=== PATIENT | female | born 1990 ===

== ENCOUNTER 2018-09-05 19:19 | Emergency (ER) | payer OTHER ==
[2018-09-05 20:07] VITALS: BP 105/70
--- NOTE | 2018-09-05 20:25 | UC ---
Knee Pain HPI - HPI Summary HPI Summary: 27-year-old female comes in with a chief complaint of right knee pain after a fall just prior to arrival running. It was a twist and fall she felt a pop. Pain is mostly in the anterior and lateral aspect. She has been unable to walk secondary to pain. She reports that she can extend and flex the knee but it does give her pain. Dorsiflexion the foot also gives pain. Denies any ankle pain or injury. No skin break. No decreased sensation. - History of Current Complaint Chief Complaint: UCLowerExtremity Stated Complaint: KNEE INJURY Time Seen by Provider: 09/05/18 20:13 Hx Last Menstrual Period: ON CONTROL Pain Intensity: 8 - Allergies/Home Medications Allergies/Adverse Reactions: Allergies Allergy/AdvReac Type Severity Reaction Status Date / Time No Known Allergies Allergy Verified 09/05/18 20:07 Home Medications: Home Medications Control* 09/05/18 [History] Citalopram TAB* [CeleXA TAB*] 10 mg PO DAILY 09/05/18 [History Confirmed ] Ibuprofen TAB* [Advil TAB*] 400 mg PO ONCE PRN 09/05/18 [History Confirmed 09/05] PMH/Surg Hx/FS Hx/Imm Hx Previously Healthy: Yes - Surgical History Surgical History: Yes Surgery Procedure, Year, and Place: WISDOM TEETH - Family History Known Family History: Positive: Non-Contributory - Social History Alcohol Use: Occasionally Substance Use Type: None Smoking Status (MU): Never Smoked Tobacco Review of Systems All Other Systems Reviewed And Are Negative: Yes Constitutional: Positive: Negative Skin: Positive: Negative Eyes: Positive: Negative ENT: Positive: Negative Respiratory: Positive: Negative Cardiovascular: Positive: Negative Gastrointestinal: Positive: Negative Motor: Positive: Negative Neurovascular: Positive: Negative Musculoskeletal: Positive: Other: - SEE HPI Neurological: Positive: Negative Psychological: Positive: Negative Is Patient Immunocompromised?: No Physical Exam Triage Information Reviewed: Yes Appearance: Well-Appearing, Well-Nourished, Pain Distress - MILD WITH RT KNEE EXAMINATION Vital Signs: Initial Vital Signs Temp 98.4 F 09/05/18 20:04 Pulse 59 09/05/18 20:04 Resp 16 09/05/18 20:04 BP 105/70 09/05/18 20:04 Pulse Ox 100 09/05/18 20:04 Vital Signs Reviewed: Yes Eye Exam: Normal Eyes: Positive: Conjunctiva Clear Neck: Positive: Supple Respiratory: Positive: No respiratory distress Musculoskeletal: Positive: Other: - On the right knee there is no effusion. Patient is able to extend the knee but with pain. Patient is tender to palpation over the patellar tibial tendon and the lateral anterior aspect of the knee. Nontender on the medial aspect of the posterior up suspect. Patient is tender in the proximal fibula. Nontender the rest of the lower leg. Ankle is nontender with full range of motion Achilles tendon is intact. Normal sensation distally normal capillary refill. Neurological: Positive: Alert Psychological: Positive: Normal Response To Family, Age Appropriate Behavior Skin Exam: Normal Knee Pain Course/Dx - Course Course Of Treatment: I discussed the x-rays with the patient and her partner. I do not see any evidence for fracture radiologist reading is pending. Patient's unable to bear weight secondary to pain. In clinic nursing applied an Irvin wrap to the knee and also knee immobilizer patient was neurovascularly intact after placement. Also patient started with crutches. Plan will be ice elevation anti- inflammatories immobilization and follow-up with sports medicine. If the radiologist to see a fracture she should follow-up with orthopedics. - Differential Dx/Diagnosis Provider Diagnosis: Right knee pain Discharge - Sign-Out/Discharge Documenting (check all that apply): Patient Departure All imaging exams completed and their final reports reviewed: No - Discharge Plan Condition: Stable Disposition: HOME Patient Education Materials: Knee Pain (ED) Referrals: Fabio Lira MD [Medical Doctor] - [facility] [Provider Group] Additional Instructions: THE FINAL RADIOLOGIST READING OF YOUR KNEE X-RAYS IS PENDING. IF THE RADIOLOGIST SEES A FRACTURE, FOLLOW UP WITH ORTHOPEDICS, DR LIRA. OTHERWISE, FOLLOW UP WITH SPORTS MEDICINE. GET RECHECKED SOONER IF YOUR CONDITION WORSENS OR ANY QUESTIONS OR CONCERNS. - Billing Disposition and Condition Condition: STABLE Disposition: Home
--- NOTE | 2018-09-06 08:13 | UC ---
- Progress Note Progress Note: Patient Name: MARAH HAYES Medical Record#: [id number] Ordering Physician: Hardik Kelly MD Acct.#: [id number] : 1990 Age: 27 Sex: F Location: [facility] Exam Date: 09/05/182015 ADM Status: DEP ER Order Information: KNEE RIGHT 4+ VWS Accession Number: [id number] CPT: 54727 Indication: Right knee pain. 4 views of the right knee are reviewed. There is no joint effusion noted. No fracture or dislocation noted. IMPRESSION: Unremarkable right knee. R0 Preliminary Imaging Read R0 <Electronically signed by Romina Bundy MD in OV> 09/06/18755 Dictated By: Romina Bundy MD Dictated Date/Time: 09/06/18755 Transcribed Date/Time: 09/06/18754 Copy to: CC:No Primary Care Phys,NOPCP ; Hardik Kelly MD Imaging - [facility] Imaging - [facility] [address] [place] [address] ph ([phone]) ph ([phone]) ph ([phone]) This report is only to be considered final once signed by the Provider(s) as displayed in the "<Electronically Signed by >" field (s). Absence of a signature indicates the report is in a draft status and still needs to be finalized. In the event this document was created by someone other than the signing Provider, the individual initiating the document will be listed in the "Entered by:" or "Dictated by:" newsome. 1 of 1 Course/Dx - Diagnoses Provider Diagnoses: Right knee pain Discharge - Sign-Out/Discharge Documenting (check all that apply): Post-Discharge Follow Up All imaging exams completed and their final reports reviewed: Yes - Discharge Plan Condition: Stable Disposition: HOME Patient Education Materials: Knee Pain (ED) Referrals: [facility] [Provider Group] Fabio Lira MD [Medical Doctor] - Additional Instructions: THE FINAL RADIOLOGIST READING OF YOUR KNEE X-RAYS IS PENDING. IF THE RADIOLOGIST SEES A FRACTURE, FOLLOW UP WITH ORTHOPEDICS, DR LIRA. OTHERWISE, FOLLOW UP WITH SPORTS MEDICINE. GET RECHECKED SOONER IF YOUR CONDITION WORSENS OR ANY QUESTIONS OR CONCERNS. - Billing Disposition and Condition Condition: STABLE Disposition: Home
== END 2018-09-05 21:25 | disposition home or self-care (01) ==
LOC: UCEAST 19:19
DX: M25.561 Pain in right knee (principal)
CPT/HCPCS: 99213; G0463